=== PATIENT | female | born 1970 | race Caucasian/White ===

== ENCOUNTER → 2016-09-27 | Day surgery (SDC) | payer OTHER ==
--- NOTE | 2016-09-26 10:47 | History & Physical Pre-Op ---
General Information and HPI MD Statement: I have seen and personally examined YUMIKO CHING and documented this H&P. The patient is a 46 year old F who presented with a patient stated chief complaint of []. History of Present Illness: The patient is a 46-year-old 2 para 2 with chronic menorrhagia and endometrial polyp and presents today for D&C hysteroscopy and NovaSure ablation. Her method of contraception is vasectomy. Allergies/Medications Allergies: Coded Allergies: MDX - Penicillin (05/09/10) Uncoded Allergies: Allergy Other NKA Food Allergies NKA Med Allergies PCN, Home Med list Atenolol 25 MG TABLET 0.5 TAB PO DAILY HTN (Reported) Losartan Potassium 50 MG TABLET 1 TAB PO DAILY HTN (Reported) Pantoprazole Sodium 40 MG TABLET.DR 1 TAB PO DAILY GERD (Reported) Tramadol HCl 50 MG TABLET 1.5 TAB PO TID PAIN (Reported) Past History Medical History Cardiovascular: hypertension Gastrointestinal: GERD Surgical History Pertinent Surgical History: excision of lipoma left shoulder Review of Systems Review of Systems Constitutional: Reports: no symptoms. EENTM: Reports: no symptoms. Cardiovascular: Reports: no symptoms. Respiratory: Reports: no symptoms. GI: Reports: no symptoms. Genitourinary: Reports: see HPI. Musculoskeletal: Reports: no symptoms. Skin: Reports: no symptoms. Neurological/Psychological: Reports: no symptoms. Hematologic/Endocrine: Reports: no symptoms. Immunologic/Allergic: Reports: no symptoms. All Other Systems: Reviewed and Negative Exam & Diagnostic Data Last 24 Hrs of Vital Signs/I&O Vital signs stable Physical Exam: HEENT: Normocephalic atraumatic Chest: Clear to auscultation Cardiovascular: Normal S1, S2 Pelvic: Deferred to the OR Extremities: No clubbing cyanosis or edema Neurologic: Nonfocal Assessment/Plan Assessment/Plan: Menorrhagia Plan: D&C, hysteroscopy, NovaSure ablation As Ranked By This Provider Problem List: 1. Menorrhagia
[~2016-09-27] VITALS: Ht 144.8 cm; Wt 64.4 kg
[~2016-09-27] MED LIST: ATENOLOL25 M1 PO; LOSARTAN POTASS50 M1 PO; PANTOPRAZOLE SO40 M1 PO; TRAMADOL HCL50 M1 PO
--- NOTE | 2016-10-03 09:12 | Operative Report ---
Operative/Inv Procedure Report Surgery Date: 09/27/16 Name of Procedure: NC hysteroscopy NovaSure ablation. Pre-Operative Diagnosis: Menorrhagia Post-Operative Diagnosis: Same Estimated Blood Loss: scant Surgeon/Writing Manager: ROSALINE WILSON MD Anesthesia: local monitored anesthesi Operative/Procedure Note Note: The patient was brought to the operating room placed on the OR table in the dorsal supine position. After adequate anesthesia she was repositioned in a modified dorsal lithotomy. She was prepped and draped in usual fashion. A weighted speculum was inserted into the vagina with the help of a [place] retractor single-tooth tenaculum was attached to the anterior lip of the cervix. Cervix was injected with Pitressin 2 mL in each quadrant. An endocervical curettage was performed revealing a small amount of tissue. The uterus was then sounded to 8 cm. The cervical length was noted to be 4 cm. Cervix was serially dilated to accommodate the hysteroscope. The Myosure hysteroscope was placed into the uterus and shaggy endometrium was noted throughout. No fibroids or polyps were noted. An endometrial curettage was used using the Zuleyma sure technique all quadrants were sampled adequately. At this point the hysteroscope was removed and the NovaSure was prepared. It was inserted into the uterus opened and seated and the opening with was noted to be 4 cm. The length and width were placed into the settings of the machine and the machine was activated after the seal was complete. The ablation lasted approximately 120 seconds at 120 W of power. At the end of the procedure the NovaSure was removed and noted to be intact. Hemostasis was good the patient was then awakened and sent to recovery in good condition. All needle, sponge, and management counts were correct at the end of the procedure 2.
== END ==
LOC: STS 04:52
DX: N92.0 Excessive and frequent menstruation with regular cycle (principal); I10 Essential (primary) hypertension; K21.9 Gastro-esophageal reflux disease without esophagitis; M79.7 Fibromyalgia
CPT/HCPCS: 81025; 88305; J0131; J2250

== ENCOUNTER → 2017-08-07 | Day surgery (SDC) | payer OTHER ==
--- NOTE | 2017-08-05 12:08 | History & Physical Pre-Op ---
General Information and HPI History of Present Illness: Charisma is a 47-year-old female with a long-standing and worsening complaint of a painful bunion right foot. The patient has undergone an extended course of conservative care, including shoe gear and activity modification, rest, immobilization course of NSAIDs. None of this is yielded her any significant relief. The patient presented today for preoperative surgical consultation. Allergies/Medications Allergies: Coded Allergies: Penicillins (RASH 08/03/17) Home Med list Atenolol 25 MG TABLET 1 TAB PO DAILY HTN (Reported) Losartan Potassium 50 MG TABLET 1 TAB PO DAILY HTN (Reported) Omeprazole 40 MG CAPSULE.DR 1 CAP PO BID GI (Reported) Tramadol HCl 50 MG TABLET 2 TAB PO BID PRN PAIN (Reported) Trazodone HCl 50 MG TABLET 1 TAB PO QHS SLEEP (Reported) Past History Medical History Cardiovascular: hypertension Gastrointestinal: GERD Surgical History Pertinent Surgical History: excision of lipoma left shoulder Review of Systems Review of Systems: Unremarkable except for that noted in history of present illness Exam & Diagnostic Data Physical Exam: Lungs clear bilaterally. Heart sounds rate and rhythm regular. Lower extremity physical exam demonstrates intact pedal pulses bilaterally. Both dorsalis pedis and posterior tibial arteries are palpable bilaterally. Patient without any sensory motor deficits. Deep tendon reflexes grossly intact. Patient noted to have significant pain with palpation range of motion through the right first metatarsophalangeal joint. The hallux is noted to be tracking in track bound. No crepitus identified with range of motion. Assessment/Plan Assessment/Plan: Painful bunion right foot. A lengthy discussion reviewing both surgical and conservative options was held the patient at bedside and the patient elected to go forward with surgery despite the risks. As Ranked By This Provider Problem List: 1. Acquired hallux valgus of right foot Attending MD Review Statement Attending Statement Attending MD Statement: examined this patient
[~2017-08-07] VITALS: Ht 144.8 cm; Wt 61.7 kg
[~2017-08-07] MED LIST changes: +OMEPRAZOLE40 M1 PO; +TRAZODONE HCL50 M1 PO
--- NOTE | 2017-08-07 12:40 | Operative Report ---
Operative/Inv Procedure Report Surgery Date: 08/07/17 Name of Procedure: 1 bunionectomy right foot 2 arthroplasty second toe right foot 3 arthroplasty third toe right foot 4 arthroplasty fourth toe right foot 5 intraoperative insertion Michele block anesthesia Pre-Operative Diagnosis: 1 bunion right foot 2 hammertoe second toe right foot 3 hammertoe third toe right foot 4 hammertoe fourth toe right foot Post-Operative Diagnosis: The same Estimated Blood Loss: scant Surgeon/Vehicle Delivery Worker: Bipin MUIR,Sincere Betancur DPM Anesthesia: moderate sedation, block Operative/Procedure Note Note: After obtaining informed consent the patient was brought to the operating room and placed on the operating table in the supine position. The patient isn't securely fastened to the operating table utilizing safety belt. After administration of IV sedation, 10 mL of 0.5% Marcaine plain was infiltrated about the patient's right ankle. Well-padded ankle tourniquet was placed about the patient's right lower extremity. The right foot was scrubbed prepped and draped in usual aseptic manner. 600 mg clindamycin were delivered intravenously times one one dose. Right foot was elevated to examine to limb, which point the ankle tourniquet inflated 250 mmHg. Attention directed dorsal aspect the right foot, where 6 cm linear incision was made just medial to the course of the extensor listless longus tendon. The skin was signed 15 blade and carried down to the subtenons tissues. All vital neurovascular structures were identified protected. An inverted L capsulotomy was performed exposing the medial eminence. This resected with sagittal bone saw. A lateral capsulotomy was performed with release of the fingers suspensory ligament and the oblique head of the abductor hallucis tendon. The extensor hallucis brevis tendon was identified and tenotomized. A Chevron type osteotomy was performed and the capital fragment was transposed laterally. It was then fixated utilizing standard AO fixation techniques. The dissection was then carried onto the base of proximal phalanx with the periosteum incised reflected. A medially based wedge osteotomy was performed to reduce the distal articular set angle. His and fixated utilizing standard AO fixation techniques. The wound was irrigated cuff Svensson normal sterile saline. The capture structures reapproximated 3-0 Vicryl subtenons tissues reports a 4-0 Vicryl. Skin edges then reapproximated with 4-0 Monocryl. Attention was then directed to the dorsal aspect of the second third and fourth digits. Transversely oriented semielliptical incisions centered over the proximal phalangeal joint were incised with 15 blade. The ellipses of skin were freed and passed from the operative field. Transverse tenotomies were then performed exposing the heads of the proximal phalanges. These were then removed sagittal bone saw. The extensor tendons were then reapproximated 4-0 Vicryl and the skin edges reapproximated 4-0 nylon. Incision dressed with Xeroform 4 x 4's Kerlix and an Mariano wrap. The patient was then noted tolerate both procedure and anesthesia well and the patient was transported from the operating room to recovery with vital signs stable best assess intact all digits right foot.
== END ==
LOC: STS 03:17
DX: M21.611 Bunion of right foot (principal); M20.11 Hallux valgus (acquired), right foot; M20.41 Other hammer toe(s) (acquired), right foot
CPT/HCPCS: 81025; J1885; J2001; J2250